=== PATIENT | male | born 1955 | race Caucasian/White ===

== ENCOUNTER 2019-09-06 19:08 | Emergency (ER) | payer MEDICARE, MEDICAID ==
[2019-09-06 19:43] LABS: BILIRUBIN,URINE NEGATIVE (NEGATIVE); GLUCOSE, URINE (UA) NEGATIVE (NEGATIVE); KETONES,URINE (UA) NEGATIVE (NEGATIVE); LEUKOCYTE ESTERASE, URINE MODERATE (NEGATIVE); NITRITE,URINE POSITIVE (NEGATIVE); OCCULT BLOOD,URINE TRACE-INTA (NEGATIVE); PH,URINE 5.5 PH (5.0-7.5); PROTEIN,URINE NEGATIVE (NEGATIVE); UROBILINOGEN,URINE 0.2 (NORMAL) E.U./dL (NORMAL)
[2019-09-06 20:04] LABS: BACTERIA,URINE Many /HPF (None Seen); CLARITY,URINE CLEAR (CLEAR); RBC,URINE 0-5 /HPF (0-5); SQUAMOUS EPITHELIAL CELL,UR NONE SEEN (<= Few)
--- NOTE | 2019-09-06 20:22 | ED Physician Documentation ---
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 I had a discussion with the patient regarding risks and benefits of taking Levaquin.) Review of Systems Constitutional: reports: Fever Eyes: reports: Reviewed and negative Ears: reports: Reviewed and negative Nose: reports: Reviewed and negative Throat: reports: Reviewed and negative Cardiac: reports: Reviewed and negative Respiratory: reports: Reviewed and negative GI: reports: Reviewed and negative : reports: Dysuria, Incontinent Skin: reports: Reviewed and negative Musculoskeletal: reports: Reviewed and negative Neurologic: reports: Reviewed and negative Psychiatric: reports: Reviewed and negative Endocrine: reports: Reviewed and negative Immunocompromised: reports: Reviewed and negative PD PAST MEDICAL HISTORY - Past Medical History Past Medical History: Yes Cardiovascular: Arrhythmia Respiratory: None Neuro: None Endocrine/Autoimmune: None GI: None : Dialysis, Renal insuffiency HEENT: None Psych: None Musculoskeletal: None Derm: None - Past Surgical History Past Surgical History: Yes Cardiovascular: Pacemaker - Present Medications Home Medications: Ambulatory Orders Medication Instructions Recorded Confirmed Acyclovir 400 mg PO BID 02/19/15 01/27/16 Atorvastatin Calcium [Lipitor] 10 mg PO DAILY 02/19/15 01/27/16 Mycophenolate Sodium [Myfortic] 360 mg PO BID 02/19/15 01/27/16 Tacrolimus [Protopic] 200 mg PO BID 02/19/15 01/27/16 Lorazepam [Ativan] 1 mg PO DAILY 05/16/15 01/27/16 Zolpidem [Ambien] 10 mg PO DAILY 05/16/15 01/27/16 Ciprofloxacin HCl [Cipro] 500 mg PO BID #28 tablet 01/03/16 01/27/16 Cetirizine [ZyrTEC] 10 mg PO DAILY PRN #14 tablet 01/27/16 Cephalexin [Keflex] 500 mg PO QID 10 Days #40 capsule 09/06/19 - Allergies Allergies/Adverse Reactions: Allergies Allergy/AdvReac Type Severity Reaction Status Date / Time ibuprofen [From Motrin] Allergy Nausea Verified 09/06/19 19:19 narcotics Allergy Nausea Uncoded 09/06/19 19:19 - Social History Does the pt smoke?: No Smoking Status: Never smoker Does the pt drink ETOH?: No Does the pt have substance abuse?: No - Immunizations Immunizations are current?: Yes - POLST Patient has POLST: No PD ED PE NORMAL - Vitals Vital signs reviewed: Yes - General General: Alert and oriented X 3, No acute distress, Well developed/nourished - HEENT HEENT: Atraumatic, PERRL, Moist mucous membranes - Neck Neck: Supple, no meningeal sign - Cardiac Cardiac: RRR, Strong equal pulses - Respiratory Respiratory: No respiratory distress, Clear bilaterally - Abdomen Abdomen: Normal bowel sounds, Soft, Non tender, Non distended - Male Male : Other (Circumcised, no blood at the urethral meatus, No inguinal lymphadenopathy. Testicles descended bilaterally.) - Derm Derm: Warm and dry - Extremities Extremities: No deformity - Neuro Neuro: Alert and oriented X 3, production planning manager 2-12 intact, No motor deficit, No sensory deficit, Normal speech - Psych Psych: Normal mood, Normal affect Results - Vitals Vitals: Vital Signs - 24 hr 09/06/19 09/06/19 19:16 21:04 Temperature 36.9 C 36.9 C Heart Rate 103 H 93 Respiratory 17 16 Rate Blood Pressure 151/80 H 144/100 H O2 Saturation 95 96 Oxygen O2 Source Room air - Labs Labs: Laboratory Tests 09/06/19 09/06/19 19:30 20:33 Urine Color YELLOW Urine Clarity CLEAR Urine pH 5.5 Ur Specific [place] <=1.005 Urine Protein NEGATIVE Urine Glucose (UA) NEGATIVE Urine Ketones NEGATIVE Urine Occult Blood TRACE-INTA Urine Nitrite POSITIVE H Urine Bilirubin NEGATIVE Urine Urobilinogen 0.2 (NORMAL) Ur Leukocyte Esterase MODERATE H Urine RBC 0-5 Urine WBC 11-25 H Ur Squamous Epith Cells NONE SEEN Urine Bacteria Many H Ur Microscopic Review INDICATED Urine Culture Comments INDICATED Influenza A (Rapid) Negative Influenza B (Rapid) Negative PD MEDICAL DECISION MAKING - ED course Complexity details: other (Patient has a urinary tract infection will treat with 1 dose of Rocephin here and then provide a prescription for Keflex 500 mg to be taken 4 times daily for the next 10 days he should follow-up with his physician on Saturday.) Departure - Departure Disposition: Home, Self Care Clinical Impression: Fever Qualifiers: Fever type: unspecified Qualified Code(s): R50.9 - Fever, unspecified UTI (urinary tract infection) Qualifiers: Urinary tract infection type: catheter-associated UTI Indwelling urinary catheter type: unspecified Encounter type: initial encounter Qualified Code(s): T83.511A - Infection and inflammatory reaction due to indwelling urethral catheter, initial encounter Condition: Good Instructions: ED UTI Cystitis Male Follow-Up: YOUR,DOCTOR [Other] - Tomorrow Prescriptions: Cephalexin [Keflex] 500 mg PO QID 10 Days #40 capsule Discharge Date/Time: 09/06/19 21:05
[2019-09-06] MEDS ORDERED: LIDOCAINE 1% 2 ML VIAL MC ONE (20:44)
[2019-09-06] MEDS ORDERED: cefTRIAXone 1 GM VIAL IM STA (20:44)
[2019-09-06] MEDS ORDERED: ACETAMINOPHEN 325 MG TABLET PO STA (20:44)
[2019-09-06] MEDS ORDERED: cephALEXin 250 MG CAPSULE PO STA (20:51)
[2019-09-06 21:05] VITALS: BP 144/100
== END 2019-09-06 21:05 | disposition home or self-care (01) ==
LOC: ED 19:08
DX: T83.511A Infection and inflammatory reaction due to indwelling urethral catheter, initial encounter (principal); N30.90 Cystitis, unspecified without hematuria; Y73.8 Miscellaneous gastroenterology and urology devices associated with adverse incidents, not elsewhere classified; N28.9 Disorder of kidney and ureter, unspecified; Z99.2 Dependence on renal dialysis; Z95.0 Presence of cardiac pacemaker
CPT/HCPCS: 81001; 87077; 87086; 87181; 87275; 87276; 96372; 99283; 99284; A9270; 81003

== ENCOUNTER 2021-12-07 15:41 | Emergency (ER) | payer MEDICARE, MEDICAID ==
[2021-12-07 15:52] VITALS: BP 119/90
--- NOTE | 2021-12-07 16:19 | ED Physician Documentation ---
History of Present Illness - Stated complaint Stated Complaint: MALE - Chief complaint Chief Complaint: UTI - History obtained from History obtained from: Patient - Additonal information Additional information: 66-year-old gentleman with history of remote renal transplant for polycystic kidney disease in 2003. He also has a neurogenic bladder and self caths. For the last 10 days he has had cloudy urine with mild urethral pain with urination. He has some mild low back pain with this as well. No fevers or chills. He feels a little rundown but not terrible. Review of Systems Constitutional: denies: Fever, Chills, Myalgias, Fatigue Cardiac: denies: Chest pain / pressure, Palpitations Respiratory: denies: Dyspnea, Cough PD PAST MEDICAL HISTORY - Past Medical History Past Medical History: Yes Cardiovascular: Arrhythmia Respiratory: None Neuro: None Endocrine/Autoimmune: None GI: None : Dialysis, Renal insuffiency HEENT: None Psych: None Musculoskeletal: None Derm: None - Past Surgical History Past Surgical History: Yes Cardiovascular: Pacemaker - Present Medications Home Medications: Ambulatory Orders Medication Instructions Recorded Confirmed Acyclovir 400 mg PO BID 02/19/15 01/27/16 Atorvastatin Calcium [Lipitor] 10 mg PO DAILY 02/19/15 01/27/16 Mycophenolate Sodium [Myfortic] 360 mg PO BID 02/19/15 01/27/16 Tacrolimus [Protopic] 200 mg PO BID 02/19/15 01/27/16 Lorazepam [Ativan] 1 mg PO DAILY 05/16/15 01/27/16 Zolpidem [Ambien] 10 mg PO DAILY 05/16/15 01/27/16 Ciprofloxacin HCl [Cipro] 500 mg PO BID #28 tablet 01/03/16 01/27/16 Cetirizine [ZyrTEC] 10 mg PO DAILY PRN #14 tablet 01/27/16 cephALEXin [Keflex] 500 mg PO QID 10 Days #40 capsule 09/06/19 levoFLOXacin [Levaquin] 250 mg PO DAILY #10 tablet 12/07/21 - Allergies Allergies/Adverse Reactions: Allergies Allergy/AdvReac Type Severity Reaction Status Date / Time ibuprofen [From Motrin] Allergy Nausea Verified 12/07/21 15:52 narcotics Allergy Nausea Uncoded 12/07/21 15:52 - Social History Does the pt smoke?: No Smoking Status: Never smoker Does the pt drink ETOH?: No Does the pt have substance abuse?: No - Immunizations Immunizations are current?: Yes - POLST Patient has POLST: No PD ED PE NORMAL - Vitals Vital signs reviewed: Yes - General General: Alert and oriented X 3, No acute distress - Abdomen Abdomen: Normal bowel sounds, Soft, Non tender - Back Back: No CVA TTP, No spinal TTP - Derm Derm: Normal color, Warm and dry - Neuro Neuro: Alert and oriented X 3, Normal speech Results - Vitals Vitals: Vital Signs - 24 hr 12/07/21 15:47 Temperature 36.4 C L Heart Rate 80 Respiratory 16 Rate Blood Pressure 119/90 H O2 Saturation 95 Oxygen O2 Source Room air - Labs Labs: Laboratory Tests 12/07/21 16:17 Urine Color YELLOW Urine Clarity CLEAR Urine pH 6.0 Ur Specific [place] <=1.005 Urine Protein NEGATIVE Urine Glucose (UA) NEGATIVE Urine Ketones NEGATIVE Urine Occult Blood SMALL H Urine Nitrite NEGATIVE Urine Bilirubin NEGATIVE Urine Urobilinogen 0.2 (NORMAL) Ur Leukocyte Esterase SMALL H Urine RBC 0-5 Urine WBC 6-10 H Ur Squamous Epith Cells NONE SEEN Urine Bacteria Moderate H Ur Microscopic Review INDICATED Urine Culture Comments INDICATED Departure - Departure Disposition: 01 Home, Self Care Clinical Impression: History of renal transplant UTI (urinary tract infection) Qualifiers: Urinary tract infection type: acute cystitis Hematuria presence: without hematuria Qualified Code(s): N30.00 - Acute cystitis without hematuria Condition: Good Record reviewed to determine appropriate education?: Yes Instructions: ED UTI Cystitis Male Prescriptions: levoFLOXacin [Levaquin] 250 mg PO DAILY #10 tablet Comments: I sent your prescription electronically to [facility] in [place]. We will culture your urine, the results should be done in 48-72 hours. If an antibiotic change is necessary we will call you. Return if worse in the meantime, especially if you develop increasing flank pain, fevers, or cannot keep down the medication.
[2021-12-07 16:38] LABS: BILIRUBIN,URINE NEGATIVE (NEGATIVE); GLUCOSE, URINE (UA) NEGATIVE (NEGATIVE); KETONES,URINE (UA) NEGATIVE (NEGATIVE); LEUKOCYTE ESTERASE, URINE SMALL (NEGATIVE); NITRITE,URINE NEGATIVE (NEGATIVE); OCCULT BLOOD,URINE SMALL (NEGATIVE); PROTEIN,URINE NEGATIVE (NEGATIVE); UROBILINOGEN,URINE 0.2 (NORMAL) E.U./dL (NORMAL)
[2021-12-07 16:42] LABS: CLARITY,URINE CLEAR (CLEAR)
[2021-12-07 16:53] LABS: BACTERIA,URINE Moderate /HPF (None Seen); RBC,URINE 0-5 /HPF (0-5); SQUAMOUS EPITHELIAL CELL,UR NONE SEEN (<= Few)
== END 2021-12-07 17:44 | disposition home or self-care (01) ==
LOC: ED 15:41
DX: N30.00 Acute cystitis without hematuria (principal); Z94.0 Kidney transplant status
CPT/HCPCS: 81001; 81003; 87077; 87086; 87181; 99282; 99283

== ENCOUNTER 2023-06-19 14:43 | Emergency (ER) | payer MEDICARE, MEDICAID ==
[2023-06-19 15:03] VITALS: BP 139/86; O2SAT 97
[2023-06-19 15:23] LABS: BASOPHILS % (AUTO) 0.5 %; EOSINOPHILS # (AUTO) 0.1 10^3/uL (0.0-0.7); EOSINOPHILS % (AUTO) 1.1 %; HCT - HEMATOCRIT 51.7 % (42.0-52.0); HGB - HEMOGLOBIN 17.1 g/dL (14.0-18.0); LYMPHOCYTES # (AUTO) 1.3 10^3/uL (1.5-3.5); LYMPHOCYTES % (AUTO) 18.2 %; MEAN CORPUSCULAR HEMOGLOBIN 32.6 pg (27.0-31.0); MEAN CORPUSCULAR HGB CONC 33.1 g/dL (32.0-36.0); MEAN CORPUSCULAR VOLUME 98.5 fL (80.0-94.0); MEAN PLATELET VOLUME 8.8 fL (7.4-11.4); MONOCYTES # (AUTO) 0.7 10^3/uL (0.0-1.0); MONOCYTES % (AUTO) 9.2 %; NEUTROPHILS # (AUTO) 5.2 10^3/uL (1.5-6.6); NEUTROPHILS % (AUTO) 70.7 %; PLT - PLATELET COUNT 186 10^3/uL (130-450); RED BLOOD COUNT 5.25 10^6/uL (4.70-6.10); RED CELL DISTRIBUTION WIDTH 13.4 % (12.0-15.0); WHITE BLOOD COUNT 7.3 x10^3/uL (4.8-10.8)
--- NOTE | 2023-06-19 15:31 | ED Physician Documentation ---
History of Present Illness - Stated complaint Stated Complaint: - Chief complaint Chief Complaint: Abd Pain - Additonal information Additional information: 67-year-old male presents emergency department for evaluation of concerns for possible urinary tract infection. He has a history of polycystic kidney disease status post kidney transplant in 2003. He also has a history of a neurogenic bladder for which he self caths 4-6 times a day. Over the last several weeks he has noticed an abnormal odor to his urine. He is denying abdominal pain, fevers or vomiting. He is followed by nephrology at [facility]. Reports compliance with his medications. Review of Systems Constitutional: denies: Fever, Chills Cardiac: reports: Reviewed and negative Respiratory: reports: Reviewed and negative GI: denies: Abdominal Pain : reports: Other (neurogenic bladder; self caths). denies: Dysuria, Frequency Skin: reports: Reviewed and negative Musculoskeletal: reports: Reviewed and negative PD PAST MEDICAL HISTORY - Past Medical History Past Medical History: Yes Cardiovascular: Arrhythmia Respiratory: None Neuro: None Endocrine/Autoimmune: None GI: None : Dialysis, Renal insuffiency HEENT: None Psych: None Musculoskeletal: None Derm: None - Past Surgical History Past Surgical History: Yes Cardiovascular: Pacemaker - Present Medications Home Medications: Ambulatory Orders Medication Instructions Recorded Confirmed Atorvastatin Calcium [Lipitor] 10 mg PO DAILY 02/19/15 01/27/16 Mycophenolate Sodium [Myfortic] 360 mg PO BID 02/19/15 01/27/16 Tacrolimus [Protopic] 200 mg PO BID 02/19/15 01/27/16 Lorazepam [Ativan] 1 mg PO DAILY 05/16/15 01/27/16 Zolpidem [Ambien] 10 mg PO DAILY 05/16/15 01/27/16 Cetirizine [ZyrTEC] 10 mg PO DAILY PRN #14 tablet 01/27/16 - Allergies Allergies/Adverse Reactions: Allergies Allergy/AdvReac Type Severity Reaction Status Date / Time ibuprofen [From Motrin] Allergy Nausea Verified 06/19/23 14:52 narcotics Allergy Nausea Uncoded 06/19/23 14:52 - Social History Does the pt smoke?: No Smoking Status: Never smoker Does the pt drink ETOH?: No Does the pt have substance abuse?: No - Immunizations Immunizations are current?: Yes - POLST Patient has POLST: No PD ED PE NORMAL - General General: Alert and oriented X 3, No acute distress - HEENT HEENT: PERRL - Cardiac Cardiac: RRR - Respiratory Respiratory: No respiratory distress, Clear bilaterally - Abdomen Abdomen: Normal bowel sounds Results - Vitals Vitals: Vital Signs - 24 hr 06/19/23 06/19/23 06/19/23 14:52 15:25 15:50 Temperature 36.5 C Heart Rate 75 Respiratory 16 17 17 Rate Blood Pressure 139/86 H O2 Saturation 97 Oxygen O2 Source Room air - Labs Labs: Laboratory Tests 06/19/23 06/19/23 06/19/23 15:15 15:15 15:15 WBC 7.3 RBC 5.25 Hgb 17.1 Hct 51.7 MCV 98.5 H MCH 32.6 H MCHC 33.1 RDW 13.4 Plt Count 186 MPV 8.8 Neut # (Auto) 5.2 Lymph # (Auto) 1.3 L D[place] # (Auto) 0.7 Eos # (Auto) 0.1 Baso # (Auto) 0.0 Absolute Nucleated RBC 0.00 Nucleated RBC % 0.0 Sodium 135 Potassium 4.2 Chloride 102 Carbon Dioxide 27 Anion Gap 6.0 BUN 23 H Creatinine 1.3 Estimated GFR (MDRD) 55 L Glucose 106 H Calcium 10.2 Total Bilirubin 1.0 AST 29 ALT 34 Alkaline Phosphatase 69 Total Protein 7.1 Albumin 4.7 Globulin 2.4 Albumin/Globulin Ratio 2.0 Lipase 20 Urine Color STRAW Urine Clarity CLEAR Urine pH 6.0 Ur Specific [place] <=1.005 Urine Protein NEGATIVE Urine Glucose (UA) NEGATIVE Urine Ketones NEGATIVE Urine Occult Blood TRACE-LYSE Urine Nitrite NEGATIVE Urine Bilirubin NEGATIVE Urine Urobilinogen 0.2 (NORMAL) Ur Leukocyte Esterase NEGATIVE Ur Microscopic Review NOT INDICATED Urine Culture Comments NOT INDICATED PD Medical Decision Making - ED course Complexity details: reviewed results, re-evaluated patient, d/w patient ED course: 67-year-old male who has a history of polycystic kidney disease status post renal transplant in 2003 and also with a history of neurogenic bladder for which he self caths 4-6 times a day presents the emergency department for evaluation of intermittent foul-smelling urine for the last 2 weeks. He is denying any fevers or abdominal pain. He is concerned he has a urinary tract infection. He did have labs and urinalysis completed on 04 June at [facility] which showed stable renal function with a creatinine of 1.3. His urine showed no signs of infection. Today in the emergency department we repeated CBC, electrolytes and urinalysis. Per my interpretation no evidence of infection within the urine. His renal function remained stable with a creatinine of 1.3. Clinically the patient appears well. There was no abdominal tenderness elicited. No worrisome abdominal exam findings. Do not feel he would benefit from advanced imaging as clinically I am not suspicious for a sending infection or pyelonephritis. He is discharged home in stable condition. Advised to follow closely with his chronometer assembler and adjuster. Otherwise emergent and worrisome return precautions were discussed. Departure - Departure Disposition: Home, Self Care Clinical Impression: Foul smelling urine, History of kidney transplant, History of neurogenic bladder Condition: Stable Record reviewed to determine appropriate education?: Yes Comments: As discussed at the bedside your urine today shows no signs of infection. Your CBC and electrolytes are also reassuring. Your kidney function is stable. Your creatinine today is 1.3. In review of your [facility] records this is unchanged from 2 weeks ago. At this time it is not clear what the cause of your abnormal smell to your urine is but there does not appear to be any infection. I recommend you continue to take your medications as already prescribed and discuss your concerns with your chronometer assembler and adjuster. Return to the ER if you develop fevers, abdominal pain nausea and vomiting. Forms: PCP List
[2023-06-19 15:37] LABS: BILIRUBIN,URINE NEGATIVE (NEGATIVE); GLUCOSE, URINE (UA) NEGATIVE (NEGATIVE); KETONES,URINE (UA) NEGATIVE (NEGATIVE); LEUKOCYTE ESTERASE, URINE NEGATIVE (NEGATIVE); NITRITE,URINE NEGATIVE (NEGATIVE); OCCULT BLOOD,URINE TRACE-LYSE (NEGATIVE); PROTEIN,URINE NEGATIVE (NEGATIVE); UROBILINOGEN,URINE 0.2 (NORMAL) E.U./dL (NORMAL)
[2023-06-19 15:39] LABS: CLARITY,URINE CLEAR (CLEAR)
[2023-06-19 15:40] LABS: ALBUMIN 4.7 g/dL (3.2-5.5); CALCIUM 10.2 mg/dL (8.5-10.3); CREATININE 1.3 mg/dL (0.6-1.3); POTASSIUM 4.2 mmol/L (3.5-4.5); TOTAL PROTEIN 7.1 g/dL (6.4-8.9)
== END 2023-06-19 16:30 | disposition home or self-care (01) ==
LOC: ED 14:43
DX: R82.998 Other abnormal findings in urine (principal); Z94.0 Kidney transplant status
CPT/HCPCS: 36415; 80053; 81001; 81003; 83690; 85025; 87086; 99283; 99284